=== PATIENT | male | born 1960 | race Caucasian/White ===

== ENCOUNTER → 2017-01-29 | Outpatient (CLI) | payer OTHER | LOC: PCVCIMAG 14:17 | PROVIDERS: ATTEND Internal Medicine Cardiovascular Disease | DX: I25.10 Atherosclerotic heart disease of native coronary artery without angina pectoris (principal); Z95.0 Presence of cardiac pacemaker; Z95.1 Presence of aortocoronary bypass graft | CPT/HCPCS: 93325; 93351 ==

== ENCOUNTER → 2017-12-05 | Outpatient (CLI) | payer OTHER ==
[~2017-12-05] MED LIST: REGADENOSON 0.4 MG/5 ML DISP.SYRIN. IV
== END | disposition home or self-care (01) ==
LOC: PCVCIMAG 07:54
DX: Z01.818 Encounter for other preprocedural examination (principal); R07.9 Chest pain, unspecified; E78.5 Hyperlipidemia, unspecified; I10 Essential (primary) hypertension; I25.2 Old myocardial infarction; I25.10 Atherosclerotic heart disease of native coronary artery without angina pectoris
CPT/HCPCS: 78452; 93017; 93308; A9500; J2785

== ENCOUNTER → 2019-03-20 | Outpatient (CLI) | payer OTHER ==
--- NOTE | 2019-03-20 14:35 | PCVCIMAG ---
APPROVED REPORT Study performed: 03/20/2019 07:57:15 EXAM: Comprehensive 2D, Doppler, and color-flow Echocardiogram Patient Location: Echo lab Status: routine BSA: 2.10 HR: 61 bpmBP: 104/60 mmHg Rhythm: NSR Other Information Study Quality: Adequate Indications Pacemaker CAD ischemic cardiomyopathy, ICD 2D Dimensions IVSd: 11.55 (7-11mm) LVDd: 52.26 mm PWd: 11.15 (7-11mm) LVDs: 41.58 (25-40mm) Left Atrium: 35.08 (27-40mm) Aortic Root: 32.32 mm LV Single Plane 4CH: 43.77 % LV Single Plane 2CH: 43.81 % Biplane EF: 43.7 % Volumes Left Atrial Volume (Systole) Single Plane 4CH: 54.21 mLSingle Plane 2CH: 74.83 mL LA ESV Index: 31.00 mL/m2 Aortic Valve AoV Peak Michael.: 1.25 m/s AO Peak Gr.: 6.20 mmHgLVOT Max P.46 mmHg LVOT Max V: 1.17 m/s Mitral Valve E/A Ratio: 1.1 MV Decel. Time: 311.05 ms MV E Max Michael.: 0.55 m/s MV A Michael.: 0.48 m/s IVRT: 128.03 ms Pulmonary Valve PV Peak Michael.: 0.79 m/sPV Peak Gr.: 2.50 mmHg Pulmonary Vein P Vein S: 0.27 m/sP Vein A: 0.31 m/s P Vein D: 0.40 m/sP Vein A Dur.: 131.5 msec P Vein S/D Ratio: 0.68 Tricuspid Valve TR Peak Michael.: 2.48 m/s TR Peak Gr.: 24.61 mmHg TV Vmax: 0.48 m/s Left Ventricle The left ventricle is normal size. Basal-mid inferior hypokinesis. Borderline concentric left ventricular hypertrophy. Left ventricular systolic function is mildly decreased due to prior MD. The left ventricular ejection fraction is within the normal range. LVEF is 45%. The left ventricular diastolic function is normal. Right Ventricle The right ventricle is normal size. The right ventricular systolic function is normal. Pacemaker lead is present in the right ventricle. Atria The left atrium size is normal. The right atrium size is normal. Pacemaker lead is present in the right atrium. Aortic Valve The aortic valve is normal in structure. No aortic regurgitation is present. There is no aortic valvular stenosis. Mitral Valve The mitral valve is normal in structure. Mild to moderate mitral regurgitation. No evidence of mitral valve stenosis. Tricuspid Valve The tricuspid valve is normal in structure. Mild tricuspid regurgitation with PAP of 31 mmHg. Pulmonic Valve The pulmonary valve is normal in structure. There is mild pulmonic valvular regurgitation. Great Vessels The aortic root is normal in size. IVC is normal in size and collapses >50% with inspiration. Pericardium There is no pericardial effusion. There is no pleural effusion. <Conclusion> The left ventricle is normal size. Borderline concentric left ventricular hypertrophy. Left ventricular systolic function is mildly decreased due to prior MD. The left ventricular ejection fraction is within the normal range. Basal-mid inferior hypokinesis. LVEF is 45%. The right ventricle is normal size. Pacemaker lead is present in the right ventricle. The right atrium size is normal. Pacemaker lead is present in the right atrium. The aortic valve is normal in structure. Mild to moderate mitral regurgitation. Mild tricuspid regurgitation with PAP of 31 mmHg. The aortic root is normal in size. There is no pericardial effusion.
== END | disposition home or self-care (01) ==
LOC: PCVCIMAG 07:54
PROVIDERS: ATTEND Internal Medicine Cardiovascular Disease
DX: I08.1 Rheumatic disorders of both mitral and tricuspid valves (principal); I25.10 Atherosclerotic heart disease of native coronary artery without angina pectoris; I25.5 Ischemic cardiomyopathy; E78.00 Pure hypercholesterolemia, unspecified; Z95.1 Presence of aortocoronary bypass graft
CPT/HCPCS: 93306